=== PATIENT | female | born 1975 | race Caucasian/White ===

== ENCOUNTER 2019-10-31 15:46 | Outpatient (CLI) | payer BC ==
[~2019-10-31] VITALS: Ht 162 cm; Wt 84.0 kg
[~2019-10-31 15:46] MED LIST: LEVO137T2 PO
== END 2019-10-31 15:54 ==
LOC: PREOP 15:46
PROVIDERS: ATTEND Surgery
DX: Z01.818 Encounter for other preprocedural examination (principal)

== ENCOUNTER → 2019-11-06 | Day surgery (SDC) | payer BC ==
[~2019-11-06] VITALS: Ht 162 cm; Wt 84.0 kg
[~2019-11-06] MED LIST changes: +LACTATED RINGERS 1,000 ML IV ONE; +LACTATED RINGERS 1,000 ML IV STA; +MIDAZOLAM 2 MG/2 ML (VERSED) VIAL ONE; +PROPOFOL INJECTION 50 ML IV ONE
[2019-11-06 09:49] VITALS: BP 134/88
--- NOTE | 2019-11-06 12:34 | Progress Note-Post Operative ---
Post-Operative Progess Note Surgeon (s)/Cytotechnologist Supervisor (s) Surgeon OLEGARIO GARCIA DO Cytotechnologist Supervisor: na Pre-Operative Diagnosis family hx colon cancer Post-Operative Diagnosis normal colon Procedure & Operative Findings Date of Procedure 11/06/19 Procedure Performed/Findings colonoscopy Anesthesia Type per hand slitter Estimated Blood Loss Estimated blood loss (mL): none Specimens/Packing Specimens Removed na OLEGARIO GARCIA DO Nov 06, 2019 12:34
[2019-11-06 12:35] VITALS: BP 122/58
--- NOTE | 2019-11-06 12:36 | Discharge Inst-Simple/Standard ---
Discharge Inst-Standard Patient Instructions/Follow Up Plan of Care/Instructions/FU: 5 years Solange repeat colonoscopy in 5 years. any issues before that be seen at that time. Activity as Tolerated: Yes Discharge Diet: Regular Diet OLEGARIO GARCIA DO Nov 06, 2019 12:36
--- NOTE | 2019-11-06 12:40 | Anesthesia-General Post-Op ---
MAC Patient Condition Mental Status/LOC: Same as Preop Cardiovascular: Satisfactory Nausea/Vomiting: Absent Respiratory: Satisfactory Pain: Controlled Complications: Absent Post Op Complications Complications None Follow Up Care/Instructions Patient Instructions None needed. Anesthesiology Discharge Order Discharge Order Patient is doing well, no complaints, stable vital signs, no apparent adverse anesthesia problems. No complications reported per nursing. MAKEDA HUMPHRIES CRNA Nov 06, 2019 12:40
[2019-11-06 12:45] VITALS: BP 136/74
[2019-11-06 13:05] VITALS: BP 138/93
[2019-11-06 13:16] VITALS: BP 138/93
--- NOTE | 2019-11-06 19:44 | OPERATIVE REPORT ---
DATE OF SERVICE: 11/06/2019 PREOPERATIVE DIAGNOSIS: Family history of colon cancer. POSTOPERATIVE DIAGNOSIS: Normal colon. PROCEDURE: Colonoscopy. SURGEON: Olegario Narvaez DO ANESTHESIA: Per URBAN DESIGNER. ESTIMATED BLOOD LOSS: None. COMPLICATIONS: None. INDICATIONS: The patient is a 44-year-old female with a family history of colon cancer. She understands risks and benefits of procedure and wished to proceed with procedure. Consent was signed in the chart. DESCRIPTION OF PROCEDURE: The patient was taken to the endoscopy suite, placed in left lateral recumbent position. Timeout was performed. Digital rectal exam was performed. There were no palpable polyps, masses or ulcerations. Scope was inserted in the rectum, advanced all the way to the cecum with minimal difficulty. Prep was adequate. Scope was then slowly retracted back. There were no polyps, masses or ulcerations within the cecum, ascending, transverse, descending and sigmoid colon. Once in the rectum, scope was retroflexed noting no other pathology. Scope was returned to its normal position, slowly withdrawn until completely removed. The patient tolerated procedure well without any complications. She was taken to recovery room in stable condition. RECOMMENDATIONS: The patient will need repeat colonoscopy in 5 years. Any issues before that be seen at that time. Job ID: [id number] DocumentID: [id number] Dictated Date: 11/06/2019 12:37:40 Sports Medicine Physician Date: 11/06/2019 19:43:28 Dictated By: OLEGARIO NARVAEZ DO
== END | disposition home or self-care (01) ==
LOC: ENDO 09:12
PROVIDERS: ATTEND Surgery
DX: Z12.11 Encounter for screening for malignant neoplasm of colon (principal); Z80.0 Family history of malignant neoplasm of digestive organs; E03.9 Hypothyroidism, unspecified; Z87.442 Personal history of urinary calculi; Z79.899 Other long term (current) drug therapy
CPT/HCPCS: 84703